=== PATIENT | male | born 1950 | race Two or more races ===

== ENCOUNTER → 2024-11-27 | Emergency (ER) | payer OTHER ==
[~2024-11-27] VITALS: Ht 340.4 cm; Wt 116.1 kg
[~2024-11-27] MED LIST: KETOROLAC TROMETHAMINE 60 MG VIAL IM ONE; KETOROLAC TROMETHAMINE 60 MG VIAL IM STA
[2024-11-27 15:45] VITALS: BP 130/78; O2SAT 100
== END | disposition home or self-care (01) ==
LOC: ER 13:28
DX: K01.1 Impacted teeth (principal)
CPT/HCPCS: 96372; 99282; J1885

== ENCOUNTER 2025-04-04 11:01 | Outpatient (CLI) | payer OTHER | END 2025-04-04 11:03 | disposition home or self-care (01) | LOC: RAD 11:01 | DX: M54.2 Cervicalgia (principal); M15.9 Polyosteoarthritis, unspecified ==